=== PATIENT | female | born 1975 ===

== ENCOUNTER 2024-01-28 05:45 | Day surgery (SDC) | payer OTHER ==
[2024-01-28] MEDS ORDERED: POVIDONE-IODINE 118 ML BOTT TOP ONE (06:39)
[2024-01-28] MEDS ORDERED: CEFAZOLIN SODIUM 1,000 MG VIAL ONE (06:39)
[2024-01-28] MEDS ORDERED: BUPIVACAINE HCL/MPF 0.5% 30ML VIAL ONE (08:10)
[2024-01-28] MEDS ORDERED: CHLORHEXIDINE GLUCONATE 120 ML BOTTLE TOP ONE (08:10)
[2024-01-28] MEDS ORDERED: TRAM1TAB98 PO (10:52)
== END 2024-01-28 12:00 | disposition home or self-care (01) ==
LOC: CIR.AMB 05:45
PROVIDERS: ATTEND Obstetrics & Gynecology
DX: D27.1 Benign neoplasm of left ovary (principal); D28.2 Benign neoplasm of uterine tubes and ligaments; K59.00 Constipation, unspecified